=== PATIENT | female | born 1995 | race Caucasian/White ===

== ENCOUNTER 2017-02-14 21:09 | Emergency (ER) | payer OTHER, MEDICAID ==
[~2017-02-14] VITALS: Ht 160 cm; Wt 112.6 kg
[~2017-02-14 21:09] MED LIST: ETHO250 PO; KEPP500T3 PO; LAMI200T2
[2017-02-14 21:25] VITALS: BP 147/70; PULSE 90; RESP 18; TEMP 99; O2SAT 100
[2017-02-14 21:57] VITALS: BP 142/83; PULSE 83; RESP 18; O2SAT 100
[2017-02-14] MEDS ORDERED: ETHO250 PO (22:04)
[2017-02-14] MEDS ORDERED: LAMI200T2 PO (22:04)
[2017-02-14] MEDS ORDERED: KEPP750T PO (22:04)
[2017-02-14] MEDS ORDERED: SODIUM CHLORIDE 0.9% FLUSH 10 ML FLUSH IVF PRN (23:15)
[2017-02-14] MEDS ORDERED: ONDANSETRON HCL 4 MG/2 ML VIAL IVP ONE (23:15)
[2017-02-14] MEDS ORDERED: SODIUM CHLOR 0.9% 1000 ML INJ 1,000 ML IV ONE (23:15)
--- NOTE | 2017-02-14 23:17 | PD ---
HPI Chief Complaint: GI Complaint Time Seen by Provider: 23:10 Travel History International Travel<30 days: No Contact w/Intl Traveler<30days: No Traveled to known affect area: No History of Present Illness HPI 21 year-old female presents to the emergency department for complaint of 3 days of nausea vomiting diarrhea and epigastric discomfort. Patient is 2 para 1 AB 1. Patient has history of epilepsy and is prescribed Keppra, Zarontin , and Lamictal. Patient states she has been able to take her medication as prescribed without vomiting her medication except perhaps one-time dose and the evening last evening. Patient states multiple episodes of vomiting today and felt near syncopal after vomiting this evening. Patient states that she did eat a salad and shortly thereafter vomited and thought she saw streaks of blood. Patient last normal period was December 24. Patient denies other concerns or complaints. No dysuria frequency urgency fever chills chest pain palpitations shortness of breath flank pain pelvic pain abnormal vaginal discharge or bleeding. No seizure activity. Epigastric discomfort is 8/10 in intensity. Patient denies dietary indiscretion, lower ingestion, or foreign travel. PFSH Past Medical History Narrative Medical Epilepsy, Ab1, marijuana use; nursing notes reviewed Diminished Hearing: No Respiratory: Yes Immunizations Current: Yes Seizures: Yes (EPILEPSY) Influenza Vaccination: Yes ?: Not LMP: LAST MONTH : 2 Para: 1 Miscarriage: 0 Ectopic : No Ovarian Cysts: No Social History Alcohol Use: No Tobacco Use: No Substance Use: Yes ([facility]) Allergies-Medications (Allergen,Severity, Reaction): Coded Allergies: No Known Allergies (Verified , 02/14/17) Reported Meds & Prescriptions Reported Meds & Active Scripts Active Reported Keppra (Levetiracetam) 750 Mg Tab 750 Mg PO BID Lamictal XR (Lamotrigine) 200 Mg Juliette 400 Mg PO BID Zarontin (Ethosuximide) 250 Mg Cap 750 Mg PO BID Review of Systems Except as stated in HPI: all other systems reviewed are Neg General / Constitutional: No: Fever, Chills HENT: No: Congestion Cardiovascular: No: Chest Pain or Discomfort Respiratory: No: Shortness of Breath Gastrointestinal: Positive: Nausea, Vomiting, Diarrhea, Abdominal Pain Genitourinary: No: Dysuria, Flank Pain, Discharge, Vaginal Bleeding Musculoskeletal: No: Myalgias, Arthralgias Skin: No Rash Neurologic: Positive: Weakness, Dizziness Psychiatric: No: Anxiety Hematologic/Lymphatic: No: Lymph Node Enlargement Physical Exam Narrative GENERAL: Well developed well-nourished female in no acute distress no respiratory distress. SKIN: Warm and dry. HEAD: Normocephalic. EYES: No scleral icterus. No injection or drainage. NECK: Supple, trachea midline. No JVD or lymphadenopathy. CARDIOVASCULAR: Regular rate and rhythm without murmurs, gallops, or rubs. RESPIRATORY: Breath sounds equal bilaterally. No accessory muscle use. GASTROINTESTINAL: Abdomen soft, mild epigastric tenderness to direct palpation without guarding or rebound no clinical Evans sign, nondistended. MUSCULOSKELETAL: No cyanosis, or edema. BACK: Nontender without obvious deformity. No CVA tenderness. Data Data Last Documented VS Vital Signs Date Time Temp Pulse Resp B/P Pulse Ox O2 Delivery O2 Flow Rate FiO2 02/14/17 23:35 69 16 122/64 100 Room Air 02/14/17 21:25 99.0 Orders Complete Blood Count With Diff (02/14/17 23:11) Comprehensive Metabolic Panel (02/14/17 23:11) Urinalysis - C+S If Indicated (02/14/17 23:11) Lipase (02/14/17 23:11) Iv Access Insert/Monitor (02/14/17 23:11) Ecg Monitoring (02/14/17 23:11) Oximetry (02/14/17 23:11) Ondansetron Inj (Zofran Inj) (02/14/17 23:15) Sodium Chloride 0.9% Flush (Ns Flush) (02/14/17 23:15) Ed Urine Pregnancytest Poc (02/14/17 23:11) Sodium Chlor 0.9% 1000 Ml Inj (Ns 1000 M (02/14/17 23:15) Potassium Chloride (Kcl) (02/15/17 01:00) Sodium Chlor 0.9% 1000 Ml Inj (Ns 1000 M (02/15/17 01:00) Labs Laboratory Tests Test 02/14/17 02/14/17 23:15 23:30 White Blood Count 9.7 TH/MM3 Red Blood Count 4.80 MIL/MM3 Hemoglobin 13.0 GM/DL Hematocrit 40.1 % Mean Corpuscular Volume 83.5 FL Mean Corpuscular Hemoglobin 27.1 PG Mean Corpuscular Hemoglobin 32.5 % Concent Red Cell Distribution Width 13.5 % Platelet Count 300 TH/MM3 Mean Platelet Volume 8.1 FL Neutrophils (%) (Auto) 58.4 % Lymphocytes (%) (Auto) 35.0 % Monocytes (%) (Auto) 5.0 % Eosinophils (%) (Auto) 0.8 % Basophils (%) (Auto) 0.8 % Neutrophils # (Auto) 5.6 TH/MM3 Lymphocytes # (Auto) 3.4 TH/MM3 Monocytes # (Auto) 0.5 TH/MM3 Eosinophils # (Auto) 0.1 TH/MM3 Basophils # (Auto) 0.1 TH/MM3 CBC Comment DIFF FINAL Differential Comment Sodium Level 141 MEQ/L Potassium Level 3.4 MEQ/L Chloride Level 108 MEQ/L Carbon Dioxide Level 26.4 MEQ/L Anion Gap 7 MEQ/L Blood Urea Nitrogen 15 MG/DL Creatinine 0.78 MG/DL Estimat Glomerular Filtration 92 ML/MIN Rate Random Glucose 87 MG/DL Calcium Level 8.8 MG/DL Total Bilirubin 0.1 MG/DL Aspartate Amino Transf 20 U/L (AST/SGOT) Alanine Aminotransferase 43 U/L (ALT/SGPT) Alkaline Phosphatase 151 U/L Total Protein 7.8 GM/DL Albumin 3.6 GM/DL Lipase 136 U/L Urine Color YELLOW Urine Turbidity SLIGHT Urine pH 5.5 Urine Specific [place] GREATER THAN 1.035 Urine Protein NEG mg/dL Urine Glucose (UA) NEG mg/dL Urine Ketones NEG mg/dL Urine Occult Blood NEG Urine Nitrite NEG Urine Bilirubin NEG Urine Leukocyte Esterase NEG Urine WBC 0-2 /hpf Urine Squamous Epithelial 0-5 /hpf Cells Urine Amorphous Sediment SMALL Urine Mucus MOD /lpf Microscopic Urinalysis Comment CULT NOT INDICATED MDM Medical Decision Making Medical Screen Exam Complete: Yes Emergency Medical Condition: Yes Medical Record Reviewed: Yes Interpretation(s) CBC & BMP Diagram 02/14/17 23:15 Vital Signs Date Time Temp Pulse Resp B/P Pulse Ox O2 Delivery O2 Flow Rate FiO2 02/14/17 23:35 69 16 122/64 100 Room Air 02/14/17 21:57 18 02/14/17 21:57 83 18 142/83 100 Room Air 02/14/17 21:25 99.0 90 18 147/70 100 POC HCG: negative Differential Diagnosis Viral syndrome, gastroenteritis, food borne illness, , gastritis, peptic ulcer disease, pancreatitis, biliary colic Narrative Course IV access obtained specimens collected and sent for resulting patient administered 1 L normal saline bolus and Zofran 4 mg IV Diagnosis Primary Impression: Gastroenteritis Referrals: Primary Care Physician call for appointment Patient Instructions: General Instructions Departure Forms: Tests/Procedures, Work Release Special Instructions: no work x 1 day Additional Instructions: Increase fluid hydration Follow clear liquid diet for next 12-24 hours Take medication as prescribed as needed for nausea and/or vomiting Continue chronic medications as chronically prescribed Take acetaminophen/Tylenol as needed for fever 100.4F or greater Return to the emergency department for any concerns or change in condition Med/Other Pt SpecificInfo: Prescription(s) given Scripts Ondansetron Odt (Zofran Odt)4 Mg Tab4 Mg SL Q6HR PRN (Nausea/Vomiting) #10 TAB Ref 0 Prov:Iesha Camacho MD 02/15/17 Disposition: 01 DISCHARGE HOME Condition: Stable Iesha Camacho MD Feb 14, 2017 23:17
[2017-02-14 23:35] VITALS: BP 122/64; PULSE 69; RESP 16; O2SAT 100
[2017-02-14 23:59] LABS: AUTOMATED NEUTROPHIL # 5.6 TH/MM3 (1.8-7.7); BASOPHIL # 0.1 TH/MM3 (0-0.2); BASOPHIL % 0.8 % (0.0-2.0); EOSINOPHIL # 0.1 TH/MM3 (0-0.4); EOSINOPHIL % 0.8 % (0.0-4.0); HEMATOCRIT 40.1 % (35.0-46.0); HEMO FLAGS DIFF FINAL; LYMPHOCYTE # 3.4 TH/MM3 (1.0-4.8); MEAN CELL VOLUME 83.5 FL (80.0-100.0); MEAN CORPUSCULAR HEMOGLOBIN 27.1 PG (27.0-34.0); MEAN CORPUSCULAR HGB CONC 32.5 % (32.0-36.0); NEUT % 58.4 % (16.0-70.0); PLATELET COUNT 300 TH/MM3 (150-450); RED CELL DISTRIBUTION WIDTH 13.5 % (11.6-17.2); WHITE BLOOD COUNT 9.7 TH/MM3 (4.0-11.0)
[2017-02-15 00:11] LABS: CHLORIDE 108 MEQ/L (98-107); POTASSIUM 3.4 MEQ/L (3.5-5.1); SODIUM (NA) 141 MEQ/L (136-145)
[2017-02-15 00:14] LABS: ANION GAP 7 MEQ/L (5-15); BICARBONATE 26.4 MEQ/L (21.0-32.0); BLOOD UREA NITROGEN 15 MG/DL (7-18)
[2017-02-15 00:17] LABS: ALT (GPT) 43 U/L (10-53); AST (GOT) 20 U/L (15-37); GLOMERULAR FILTRATION RATE 92 ML/MIN (>89)
[2017-02-15 00:18] LABS: BLOOD, URINE NEG (NEG); GLUCOSE,URINE NEG (NEG); KETONE, URINE NEG (NEG); NITRITE,URINE NEG (NEG); PH, URINE 5.5 (5.0-8.5)
[2017-02-15 00:18] LABS: TOTAL BILIRUBIN ADULT 0.1 MG/DL (0.2-1.0)
[2017-02-15 00:20] LABS: ALKALINE PHOSPHATASE 151 U/L (45-117)
[2017-02-15 00:39] LABS: MUCUS URINE MOD /lpf (OCC); URINE COLOR YELLOW (YELLW/STRAW)
[2017-02-15 00:40] LABS: SQUAMOUS EPITHELIAL CELL URINE 0-5 /hpf (0-5); WBC, URINE 0-2 /hpf (0-5)
[2017-02-15 00:41] LABS: COMMENT (UR) CULT NOT INDICATED; CULTURE IF INDICATED CULT NOT INDICATED
[2017-02-15] MEDS ORDERED: ZOFR4TAB3 SL (00:56)
[2017-02-15] MEDS ORDERED: SODIUM CHLOR 0.9% 1000 ML INJ 1,000 ML IV ONE (01:00)
[2017-02-15] MEDS ORDERED: POTASSIUM CHLORIDE 20 MEQ CONTROLLED RELEASE TAB PO ONE (01:00)
[2017-02-15 01:07] VITALS: BP 132/73
== END 2017-02-15 01:22 | disposition home or self-care (01) ==
LOC: PHED 21:09
DX: K52.9 Noninfective gastroenteritis and colitis, unspecified (principal); Z86.69 Personal history of other diseases of the nervous system and sense organs; Z87.09 Personal history of other diseases of the respiratory system
CPT/HCPCS: 80053; 81001; 83690; 84703; 85025; 96361; 96374; 99284; J2405; J7030

== ENCOUNTER 2017-02-27 17:36 | Inpatient (IN) | payer OTHER, MEDICAID ==
[~2017-02-27] VITALS: Ht 157.5 cm; Wt 109.3 kg
[~2017-02-27 17:36] MED LIST changes: -KEPP500T3 PO; +KEPP750T PO; -LAMI200T2; +LAMI200T2 PO; +ZOFR4TAB3 SL
[2017-02-27 17:45] VITALS: BP 168/72; PULSE 92; RESP 16; TEMP 98.3; O2SAT 98
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
[2017-02-27 18:57] LABS: BLOOD, URINE NEG (NEG); COMMENT (UR) CULTURE INDICATED; CULTURE IF INDICATED CULTURE INDICATED; GLUCOSE,URINE NEG (NEG); KETONE, URINE NEG (NEG); NITRITE,URINE NEG (NEG); PH, URINE 6.5 (5.0-8.5); SQUAMOUS EPITHELIAL CELL URINE 3 /hpf (0-5); URINE COLOR LIGHT-YELLOW (YELLW/STRAW)
[2017-02-27 19:02] LABS: AMPHETAMINE, URINE NEG (NEG); BARBITURATES, URINE NEG (NEG); COCAINE, URINE NEG (NEG)
[2017-02-27 19:29] LABS: BASOPHIL % 0.3 % (0.0-2.0); EOSINOPHIL # 0.1 TH/MM3 (0-0.4); EOSINOPHIL % 0.5 % (0.0-4.0); HEMATOCRIT 38.4 % (35.0-46.0); HEMO FLAGS DIFF FINAL; LYMPH % 19.5 % (9.0-44.0); LYMPHOCYTE # 2.3 TH/MM3 (1.0-4.8); MEAN CELL VOLUME 83.7 FL (80.0-100.0); MEAN CORPUSCULAR HEMOGLOBIN 27.7 PG (27.0-34.0); MONO % 4.6 % (0.0-8.0); NEUT % 75.1 % (16.0-70.0); PLATELET COUNT 298 TH/MM3 (150-450); RED BLOOD COUNT 4.59 MIL/MM3 (4.00-5.30); RED CELL DISTRIBUTION WIDTH 13.9 % (11.6-17.2)
[2017-02-27 19:30] LABS: ANION GAP 8 MEQ/L (5-15)
[2017-02-27 19:33] LABS: ACETAMINOPHEN LESS THAN 2.0 MCG/ML (10.0-30.0); ALT (GPT) 33 U/L (10-53); AST (GOT) 17 U/L (15-37); BICARBONATE 23.6 MEQ/L (21.0-32.0); BLOOD UREA NITROGEN 14 MG/DL (7-18); CHLORIDE 106 MEQ/L (98-107); GLOMERULAR FILTRATION RATE 104 ML/MIN (>89); POTASSIUM 4.1 MEQ/L (3.5-5.1); SODIUM (NA) 138 MEQ/L (136-145)
[2017-02-27 19:41] LABS: ALKALINE PHOSPHATASE 156 U/L (45-117); TOTAL BILIRUBIN ADULT 0.1 MG/DL (0.2-1.0)
[2017-02-27] MEDS ORDERED: LIDOCAINE HCL 1% 50 ML VIAL IM ONE (20:00)
[2017-02-27] MEDS ORDERED: cefTRIAXone INJ 1,000 MG in SODIUM CHLORIDE 0.9% INJ 100 ML IV ONE (20:30)
[2017-02-27 20:52] VITALS: BP 130/78; PULSE 88; RESP 16; O2SAT 98
[2017-02-27] MEDS ORDERED: levETIRAcetam 500 MG TAB PO ONE (23:00)
[2017-02-27] MEDS ORDERED: levETIRAcetam 250 MG TAB PO ONE (23:00)
[2017-02-27 23:21] VITALS: BP 128/86; PULSE 84; RESP 18; TEMP 98.5; O2SAT 99
[2017-02-28 02:08] VITALS: BP 98/50; PULSE 88; RESP 18; TEMP 98.5; O2SAT 99
[2017-02-28 05:49] VITALS: BP 119/57; PULSE 87; RESP 16; TEMP 98.8; O2SAT 97
[2017-02-28] MEDS ORDERED: levETIRAcetam 500 MG TAB PO ONE (08:30)
[2017-02-28] MEDS ORDERED: levETIRAcetam 250 MG TAB PO ONE (08:30)
[2017-02-28 10:00] VITALS: BP 121/70; PULSE 83; RESP 18
[2017-02-28] MEDS ORDERED: lamoTRIgine 100 MG TAB PO ONE (10:15)
--- NOTE | 2017-02-28 17:29 | EKG ---
Date Performed: 02/27/2017 Time Performed: 18:05:10 PTAGE: 21 years EKG: Sinus rhythm WITH SINUS ARRHYTHMIA NORMAL ECG Since PREVIOUS TRACING , no significant change noted PREVIOUS TRACIN08/25/2012 10.28.14 DOCTOR: Cortes Rios Interpretating Date/Time 02/28/2017 17:28:42
[2017-02-28 18:27] VITALS: BP 121/70
[2017-02-28 19:30] VITALS: BP 126/82; PULSE 85; RESP 18; TEMP 98.5; O2SAT 98
[2017-02-28] MEDS ORDERED: ETHOSUXIMIDE PO SCH (21:00)
[2017-02-28] MEDS ORDERED: lamoTRIgine 100 MG TAB PO SCH (21:00)
[2017-02-28] MEDS: levETIRAcetam 250 MG TAB PO SCH (21:48)
[2017-02-28] MEDS ORDERED: LORazepam 2 MG/ML VIAL IM PRN (23:15)
[2017-02-28] MEDS ORDERED: ALUMINUM/MAGNESIUM/SIMETH 30 ML CUP PO PRN (23:15)
[2017-02-28] MEDS ORDERED: LORazepam 1 MG TAB PO PRN (23:15)
[2017-02-28] MEDS ORDERED: ACETAMINOPHEN 325 MG TAB PO PRN (23:15)
[2017-02-28] MEDS ORDERED: MAGNESIUM HYDROXIDE SUSP 30 ML CUP PO PRN (23:15)
[2017-03-01 05:54] VITALS: BP 123/67; PULSE 89; RESP 18; TEMP 97.6; O2SAT 97
[2017-03-01] MEDS ORDERED: ETHOSUXIMIDE PO SCH (09:00)
[2017-03-01] MEDS: levETIRAcetam 250 MG TAB PO SCH ×2 (09:00→21:32)
[2017-03-01] MEDS ORDERED: LAMICTAL PO SCH (09:00)
[2017-03-01] MEDS: ETHOSUXIMIDE PO SCH ×2 (09:00→21:00)
[2017-03-01] MEDS: LAMICTAL PO SCH ×2 (09:00→21:00)
[2017-03-01] MEDS: NICOTINE 21 MG/24 HR PATCH T-DERMAL SCH (09:00)
[2017-03-01 10:55] LABS: HDL CHOLESTEROL 55.4 MG/DL (40.0-60.0); LDL CHOLESTEROL 133 MG/DL (0-99)
[2017-03-01 16:27] LABS: HEMOGLOBIN A1b 1.5 %; HEMOGLOBIN Ao 86.2 %; HEMOGLOBIN LA1C 1.9 %; HEMOGLOBIN P3 3.6 %
[2017-03-01 18:00] VITALS: BP 118/68; PULSE 79; RESP 17; TEMP 99.2; O2SAT 98
[2017-03-01] MEDS: REMOVE OLD NICOTINE PATCH T-DERMAL SCH (21:00)
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
[2017-03-02 06:15] VITALS: BP 88/54; PULSE 98; RESP 18; TEMP 98.3; O2SAT 99
[2017-03-02] MEDS: LAMICTAL PO SCH ×2 (09:00→21:00)
[2017-03-02] MEDS: NICOTINE 21 MG/24 HR PATCH T-DERMAL SCH (09:00)
[2017-03-02] MEDS: ETHOSUXIMIDE PO SCH ×2 (09:00→21:00)
[2017-03-02] MEDS: ESCITALOPRAM OXALATE 10 MG TAB PO SCH (09:11)
[2017-03-02] MEDS: levETIRAcetam 250 MG TAB PO SCH ×2 (09:11→21:20)
[2017-03-02 18:20] VITALS: BP 128/80; PULSE 86; RESP 18; TEMP 98.2; O2SAT 99
[2017-03-02] MEDS: REMOVE OLD NICOTINE PATCH T-DERMAL SCH (21:00)
[2017-03-03 05:54] VITALS: BP 100/51; PULSE 82; RESP 18; TEMP 98.1; O2SAT 99
[2017-03-03] MEDS: levETIRAcetam 250 MG TAB PO SCH (08:19)
[2017-03-03] MEDS: ESCITALOPRAM OXALATE 10 MG TAB PO SCH (08:19)
[2017-03-03] MEDS: ETHOSUXIMIDE PO SCH (08:44)
[2017-03-03] MEDS: LAMICTAL PO SCH (08:45)
[2017-03-03] MEDS: NICOTINE 21 MG/24 HR PATCH T-DERMAL SCH (08:45)
[2017-03-03] MEDS ORDERED: LEVE250 PO (15:05)
[2017-03-03] MEDS ORDERED: ESCI10TA PO (15:05)
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
== END 2017-03-03 16:25 | disposition home or self-care (01) | DRG 882 ==
LOC: NEPD 17:36 → NEDA 02-28 19:02 → H270 02-28 19:26
PROVIDERS: ADMIT Psychiatry & Neurology Psychiatry; ATTEND Psychiatry & Neurology Psychiatry
DX: F43.23 Adjustment disorder with mixed anxiety and depressed mood (principal); Z68.41 Body mass index [BMI] 40.0-44.9, adult; F32.9 Major depressive disorder, single episode, unspecified; F12.10 Cannabis abuse, uncomplicated; E66.9 Obesity, unspecified; G40.909 Epilepsy, unspecified, not intractable, without status epilepticus; F60.3 Borderline personality disorder; T50.992A Poisoning by other drugs, medicaments and biological substances, intentional self-harm, initial encounter
CPT/HCPCS: 80053; 80061; 80177; 80307; 81001; 83036; 84443; 84703; 85025; 87086; 93005; J0696

== ENCOUNTER 2017-05-05 17:04 | Emergency (ER) | payer MEDICAID, OTHER ==
[~2017-05-05] VITALS: Ht 160 cm; Wt 115.0 kg
[~2017-05-05 17:04] MED LIST changes: +ESCI10TA PO; +LEVE250 PO; -ZOFR4TAB3 SL
[2017-05-05 17:31] VITALS: BP 128/64; PULSE 93; RESP 16; TEMP 98.4; O2SAT 98
[2017-05-05] MEDS ORDERED: ETHO250 PO (17:42)
[2017-05-05] MEDS ORDERED: PREN29TA PO (17:42)
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
== END 2017-05-05 18:10 | disposition home or self-care (01) ==
LOC: PHEFT 17:04
DX: O26.891 Other specified pregnancy related conditions, first trimester (principal); M25.561 Pain in right knee; Z3A.08 8 weeks gestation of pregnancy
CPT/HCPCS: 99282; L1830; L1906

== ENCOUNTER → 2017-06-16 | Outpatient (CLI) | payer OTHER ==
[~2017-06-16] MED LIST changes: -ESCI10TA PO; -LEVE250 PO; +PREN29TA PO
== END ==
LOC: HPND 09:28
PROVIDERS: ATTEND Obstetrics & Gynecology
DX: O09.211 Supervision of pregnancy with history of pre-term labor, first trimester (principal); O99.351 Diseases of the nervous system complicating pregnancy, first trimester; Z68.41 Body mass index [BMI] 40.0-44.9, adult
CPT/HCPCS: 36415; 76813

== ENCOUNTER → 2017-08-04 | Outpatient (CLI) | payer BC, MEDICAID | LOC: HPND 11:24 | PROVIDERS: ATTEND Obstetrics & Gynecology | DX: O99.352 Diseases of the nervous system complicating pregnancy, second trimester (principal); O99.212 Obesity complicating pregnancy, second trimester; E66.01 Morbid (severe) obesity due to excess calories; Z68.41 Body mass index [BMI] 40.0-44.9, adult | CPT/HCPCS: 76811 ==

== ENCOUNTER → 2017-09-01 | Outpatient (CLI) | payer BC, MEDICAID | LOC: HPND 12:23 | PROVIDERS: ATTEND Obstetrics & Gynecology | DX: O99.352 Diseases of the nervous system complicating pregnancy, second trimester (principal); O36.5120 Maternal care for known or suspected placental insufficiency, second trimester, not applicable or unspecified; O99.212 Obesity complicating pregnancy, second trimester; E66.01 Morbid (severe) obesity due to excess calories; Z68.41 Body mass index [BMI] 40.0-44.9, adult | CPT/HCPCS: 76816; 76825; 76827; 93325 ==

== ENCOUNTER → 2017-10-07 | Outpatient (CLI) | payer BC, MEDICAID | LOC: HPND 10:38 | PROVIDERS: ATTEND Obstetrics & Gynecology | DX: O99.213 Obesity complicating pregnancy, third trimester (principal); E66.01 Morbid (severe) obesity due to excess calories; Z68.42 Body mass index [BMI] 45.0-49.9, adult; O99.353 Diseases of the nervous system complicating pregnancy, third trimester; O36.5120 Maternal care for known or suspected placental insufficiency, second trimester, not applicable or unspecified; O35.1XX0 Maternal care for (suspected) chromosomal abnormality in fetus, not applicable or unspecified | CPT/HCPCS: 76816 ==

== ENCOUNTER 2017-10-31 23:04 | Emergency (ER) | payer BC, MEDICAID ==
--- NOTE | 2017-11-01 00:20 | PD ---
HPI Chief Complaint Vaginal pain Date Seen: Nov 01, 2017 Time Seen: 00:12 Travel History International Travel<30 Days: No Contact w/Intl Traveler<30Days: No Known Affected Area: No History of Present Illness HPI 22-year-old 2 para 1 at 33+ weeks gestation who has been having a stabbing vaginal pain for several weeks. She became concerned tonight that this might represent effacement. She denies bleeding or discharge, leakage of fluid or contractions. She reports good movement. History Past Medical History Narrative Medical Seizure disorder Morbid obesity Obstetric History Obstetric History One prior term delivery This care has been with Dr. Mckay. Low Pap A Family History Family History: Negative Social History Alcohol Use: No Tobacco Use: No Substance Abuse: No Allergies-Medications (Allergen,Severity, Reaction): Coded Allergies: No Known Allergies (Verified Allergy, Unknown, 10/24/17) Home Meds Reported Medications Vit-Iron Carbonyl ( Plus Iron 29-1 mg) 29 Mg Iron-1 Mg Tab, 1 TAB PO DAILY for Nutritional Supplement, #30 TAB 0 Refills 05/05/17 Ethosuximide (Zarontin) 250 Mg Cap, 500 MG PO DAILY 05/05/17 Levetiracetam (Keppra) 750 Mg Tab, 750 MG PO BID for Control Seizures, #60 TAB 0 Refills 02/14/17 Lamotrigine ER (Lamictal XR) 200 Mg Juliette, 500 MG PO BID for Control Seizures, # 30 TAB 0 Refills 02/14/17 Ethosuximide (Zarontin) 250 Mg Cap, 750 MG PO HS 02/14/17 Review of Systems Except as stated in HPI: all other systems reviewed are Neg Physical Exam Narrative GENERAL: Well-nourished, well-developed patient. SKIN: Warm and dry. HEAD: Normocephalic and atraumatic. EYES: No scleral icterus. No injection or drainage. ENT: No nasal drainage noted. Mucous membranes pink. Airway patent. NECK: Supple, trachea midline. No JVD. ABDOMEN/GI: Abdomen soft, non-tender, bowel sounds present, no rebound, no guarding Gravid to [-] weeks size Fundal Height: [-] GENITOURINARY: External Genitalia: intact and normal in appearance BUS glands: [-] Cervix: [-] Dilatation: [cl-] Effacement: [lg-] Station: [high-] Presentation: [-] Membranes: [intact] Uterine Contractions: [no-] FHT's: Category: [-] Baseline: [-] Reactive: [yes-] Variability: [-] Decels: [-] EXTREMITIES: No cyanosis or edema. BACK: Nontender without obvious deformity. No CVA tenderness. NEUROLOGICAL: Awake and alert. Motor and sensory grossly within normal limits. Five out of 5 muscle strength in all muscle groups. Normal speech. Data Data Vital Signs Reviewed: Yes MDM Medical Record Reviewed: Yes Narrative Course / MDM Assessment: 33+ weeks gestation with pelvic floor discomfort Plan: Pelvic support band recommended. Follow-up as scheduled with her primary OB. Diagnosis Diagnosis: Primary Impression: 33 weeks gestation of Additional Impression: Pelvic and perineal pain Disposition: 01 DISCHARGE HOME Condition: Good Sumit Garrison MD Nov 01, 2017 00:20
== END 2017-11-01 00:15 | disposition home or self-care (01) ==
LOC: HOBED 23:04
DX: O26.893 Other specified pregnancy related conditions, third trimester (principal); R10.2 Pelvic and perineal pain; Z3A.33 33 weeks gestation of pregnancy
CPT/HCPCS: 59025